=== PATIENT | male | born 1990 | race Two or more races ===

== ENCOUNTER 2016-07-25 21:43 | Emergency (ER) | payer SELFPAY ==
[~2016-07-25] VITALS: Ht 172.7 cm; Wt 64.8 kg
[2016-07-25 21:45] VITALS: BP 132/78
[2016-07-25 22:34] LABS: HEMOGLOBIN 14.5 g/dL (13.7-18.0)
== END 2016-07-25 23:17 | disposition home or self-care (01) ==
LOC: ED 23:11
DX: K64.8 Other hemorrhoids (principal)
CPT/HCPCS: 36415; 85025; 99283